=== PATIENT | female | born 1995 | race Caucasian/White ===

== ENCOUNTER 2016-12-17 21:30 | Emergency (ER) | payer BC, OTHER ==
[~2016-12-17 21:30] MED LIST: OXYCODONE/ACETA1 TA1 PO
--- NOTE | 2016-12-18 02:12 | ED NURSING NOTES ---
Clinical Report - Nurses [facility] [address] [place] [address] 12/17/2016 21:31 Patient: JOSH ALLEN TRIAGE 21:38 12/17/16. BP: 119/59. HR: 85. RR: 18. O2 saturation: 100% on room air. Temp: 98.1 F (oral). Pain level now: 03/08. --21:39 McQuoid, Ely, ER Tech1 Triage time 21:46 Dec 17 2016. Chief Complaint: HEADACHE and (PT reports SANTACRUZ x 4-5 days taking tylenol without relief). Alert. No acute distress. SEPSIS SCREEN: Sepsis Screen. Negative (no infection suspected/documented). RAE COMA SCORE: Rae Coma Scale: 15- eyes open spontaneously (4); best verbal response- oriented x 4 (5); best motor response- obeys commands (6). --21:49 Brandon Johnson RPaddy. Weight: 80.2 kg stated. Height/Length: 67 inches Per Patient. BMI: 27.7. --21:38 McQuoid, Ely, ER Tech1. Medications None. --21:38 McQuoid, Ely, ER Tech1. Allergies No Known Drug Allergy. --21:39 McQuoid, Ely, ER Tech1. Medication/allergy information source: the patient. --21:49 Brandon Johnson RPaddy. History Arrived by private vehicle. Historian: patient. Accompanied by family. This started 4 days. She has had nausea. 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 PAST MEDICAL HX: Headaches. Immunizations: up-to-date. Last normal menstrual period- 2016. SOCIAL HX: Smoker- current status unknown (cigarette). No alcohol use or drug use. No infectious disease exposure. No known contact with a sick individual. ABUSE ASSESSMENT: No report of abuse. SELF HARM ASSESSMENT: A self harm assessment was performed. The patient answered "no" to the question "Do you have thoughts of harming or killing yourself?". FALL RISK ASSESSMENT: Fall risk assessment completed. No fall risk identified. NUTRITIONAL RISK ASSESSMENT: The nutritional risk assessment revealed no deficiencies. FUNCTIONAL ASSESSMENT: Functional assessment: no impairments noted. LEARNING NEEDS ASSESSMENT: The learning needs assessment revealed no barriers. SKIN INTEGRITY ASSESSMENT: Skin integrity risk assessment completed. No skin integrity risk identified. --21:49 Brandon Johnson R.N. PROBLEMS: Bronchitis. URI. Pneumonia. Asthma. Fall. Contusion. Intrauterine . Tetanus Status. Immunizations. . --21:47 Brandon Johnson R.N. ADDITIONAL SURGERIES: . [place] teeth removal. --21:47 Brandon Johnson R.N. Interventions ID band on patient. To treatment room. --21:49 Brandno Johnson R.N. PHYSICAL ASSESSMENT Ambulatory to room. Patient gowned. GENERAL / NEURO / PSYCH: Alert. Oriented X 4. Appears in no acute distress. Speech within normal limits. HEENT: Pupils equal, round and reactive to light. RESPIRATORY: Respirations not labored. CVS: Capillary refill less than 2 seconds. GI / : Abdomen soft. SKIN: Skin is warm and dry. --21:49 Brandon Johnson R.N. NURSING PROGRESS NOTES Patient masked upon arrival to department. --21:39 McEly Marti, ER Tech1 Patient identifiers checked. Call light placed in reach. Side rails up x 1. Bed placed in lowest position. Brakes of bed on. Patient ready for evaluation- chart flagged. Patient waiting for evaluation. --21:49 Brandon Johnson R.N. 22:00. Checked patient name and birthdate urine collected; sample sent to lab. Specimen labeled in the presence of the patient. --22:02 McFigueroa Ely, ER Tech1 ( warm blanket provided for comfort, ekg completed, waiting cxr and further poc.). --22:08 Brandon Johnson R.N. 22:46 12/17/2016 Toradol (Ketorolac Tromethamine) IM 60 mg given. Given in the right deltoid. Allergies verified and confirmed 5 rights. --22:51 Brandon Johnson R.N. 22:46 12/17/2016 Diazepam (Diazepam) PO 10 mg given. Allergies verified, confirmed 5 rights and sedative warning given to the patient and patient's administrative specialist. --22:51 Brandon Johnson R.N. Patient identifiers checked. Call light placed in reach. Side rails up. Bed placed in lowest position. Brakes of bed on. --22:52 Brandon Johnson R.N. 23:14 12/17/16. BP: 110/62. HR: 74. RR: 15. O2 saturation: 97%. --23:15 Brandon Johnson R.N. Call light placed in reach. Side rails up. --23:15 Brandon Johnson R.N. ( pt appeared to be sleeping when entering room, pt reports no change in pain since meds given, pt texting on phone, waiting mds further poc). --23:16 Brandon Johnson R.N. 00:33 12/18/16. BP: 110/64. HR: 74. RR: 15. O2 saturation: 100%. Pain level now: 04/07. --00:34 Brandon Johnson R.N. 00:44 12/18/2016 Hydrocodone-APAP (Hydrocodone-Acetaminophen) PO 5/325 mg Tablets 1 tab given. Allergies verified, confirmed 5 rights and sedative warning given to the patient and patient's administrative specialist. --00:44 Brandon Johnson R.N. Care transferred and report received (Brandon, MARIA L). --00:50 Sybil Alcantar R.N. 01:38 12/18/2016 Started bag #1 1000 mL IV Fluids IV NS (Saline); at 1000 mL/hr over 1 hour(s) via site #1 via IV pump. Allergies verified and confirmed 5 rights. IV patency established. IV site checked: no pain, redness, or swelling. IV flushed thoroughly pre- and post-medication administration. --01:44 Sybil Alcantar R.N. 01:42 12/18/2016 Site #1 started via IV in the right hand with an 20g angiocath, with aseptic technique and good blood return; one attempt. Saline lock flushed with 10 mL saline. --01:42 Sybil Alcantar R.N. 01:43 12/18/2016 Decadron IVP 10 mg given over 4 minute(s) via site #1. Allergies verified and confirmed 5 rights. IV patency established. IV site checked: no pain, redness, or swelling. IV flushed thoroughly pre- and post-medication administration. IVP given by RN. --01:43 Sybil Alcantar R.N. 01:48 12/18/2016 Benadryl (DiphenhydrAMINE HCl) IVP 25 mg given over 1 minute(s) via site #1. Allergies verified, confirmed 5 rights and sedative warning given to the patient. IV patency established. IV site checked: no pain, redness, or swelling. IV flushed thoroughly pre- and post-medication administration. IVP given by RN. --01:48 Sybil Alcantar R.N. 01:42 12/18/16. BP: 105/63 (regular adult cuff) taken on the left arm. HR: 68. RR: 16. O2 saturation: 100% on room air. Pain level now: 01/05. --01:49 Sybil Alcantar R.N. 01:52 12/18/16. BP: 104/55 (regular adult cuff) taken on the left arm. HR: 70. RR: 16. O2 saturation: 100% on room air. --01:52 Sybil Alcantar R.N. 01:54 12/18/16. BP: 102/54 (regular adult cuff) taken on the left arm. --01:55 Sybil Alcantar R.N. 01:56 12/18/2016 Reglan (Metoclopramide HCl) IVP 10 mg given over 4 minute(s) via site #1. Allergies verified and confirmed 5 rights. IV patency established. IV site checked: no pain, redness, or swelling. IV flushed thoroughly pre- and post-medication administration. IVP given by RN. --01:56 Sybil Alcantar R.N. 02:10 12/18/16. BP: 113/61 (regular adult cuff) taken on the left arm, while sitting. HR: 66. RR: 16. O2 saturation: 100% on room air. Pain level now: 0/10. --02:11 Sybil Alcantar R.N. 02:11 12/18/16. ( Patient sleeping, easily aroused. Pain gone). --02:11 Sybil Alcantar R.N. <<STRICKEN ENTRY-- 02:32 12/18/2016 IV Fluids IV NS Discontinued: bag #1 discontinued. Total amount infused: 750 mL. IV patency established. IV site checked: no pain, redness, or swelling. IV flushed thoroughly. --02:42 Sybil Alcantar R.N. --END STRIKE>> Correction. --02:42 Sybil Alcantar R.N. 02:32 12/18/2016 IV Fluids IV NS Discontinued: bag #1 discontinued. Total amount infused: 890 mL. IV patency established. IV site checked: no pain, redness, or swelling. IV flushed thoroughly. --02:42 Sybil Alcantar R.N. DISPOSITION / DISCHARGE 02:35 12/18/2016 Site #1 removed upon discharge. Bandaid applied. --02:40 Sybil Alcantar R.N. late entry - 02:35 12/18/16. Departure time: 02:Dec 18 2016. Condition at departure: improved. No learning barriers present. Discharge instructions provided and reviewed with the patient. Reviewed medication(s) side effects, precautions, dosing and course information. Prescription(s) given to the patient. Patient and administrative specialist verbalized understanding. Written instructions provided in [place]une[place]. The patient was discharged by the physician. She was discharged home and accompanied by administrative specialist. She left the Emergency Department ambulatory and via private vehicle. Primer Press Operator driving. --02:41 Sybil Alcantar R.N. 02:39 12/18/16. BP: 108/66 (regular adult cuff) taken on the left arm, while sitting. HR: 70. RR: 16. O2 saturation: 100% on room air. Temp: 98.6 F (oral). Pain level now: 0/10. --02:41 Sybil Alcantar R.N. Locked/Released at 12/18/2016 3:24 by Sybil Alcantar R.N.
--- NOTE | 2016-12-18 02:12 | ED ORDER SUMMARY ---
..... Patient: JOSH ALLEN OrderSheet [facility] VisitID: [id number] [place] [address] 21y, F Registration Date/Time: 12/17/2016 ORDER SHEET Weight: 80.2 kg (stated) Allergies: No Known Drug Allergy, None GENERAL ORDERS: Urine Urgent (21:55 12/17/2016 Jeanie Peralta) (Ack 21:57 AMcQuoid ER Tech1) (22:01 AMcQuoid ER Tech1) MEDICATION ORDERS: Diazepam PO 10 mg (HIGH ALERT MEDICATION, NOW) (22:26 12/17/2016 Jeanie Peralta) (Ack 22:36 KPage-Kuchan R.N.) (22:51 KPage-Kuchan R.N.) Toradol IM 60 mg (NOW) (22:26 12/17/2016 Jeanie Peralta) (Ack 22:36 KPage-Kuchan R.N.) (22:51 KPage-Kuchan R.N.) Hydrocodone-APAP PO 5/325 mg (NOW, HIGH ALERT MEDICATION) (00:36 12/18/2016 Jeanie Peralta) (Ack 0:38 RCollier R.N.) (0:44 KPage-Kuchan R.N.) IV FLUIDS: Decadron IV 10 mg (NOW) (01:09 12/18/2016 Jeanie Peralta) (Ack 1:11 JSanders R.N.) (1:43 JSanders R.N.) Benadryl IV 25 mg (NOW) (01:09 12/18/2016 Jeanie Peralta) (Ack 1:11 JSanders R.N.) (1:48 JSanders R.N.) Reglan IV 10 mg (NOW) (01:12/18/2016 Jeanie Peralta) (Ack 1:11 JSanders R.N.) (1:56 JSanders R.N.) IV NS : initial bolus none -, then 1000 mL/hr for X1 (NOW) (01:12/18/2016 Jeanie Peralta) (Ack 1:11 JSanders R.N.) (1:44 Sean Kathleen.Mac) ORDER SHEET NOTES: [Electronically signed by Sybil Alcantar R.N. (03:24 12/18/2016)] [Electronically signed by Hilario Stevens Dr. (04:16 12/18/2016)] [Electronically locked/signed by Sybil Alcantar R.N. (03:24 12/18/2016)]
--- NOTE | 2016-12-18 02:12 | ED CLINICAL REPORT ---
Clinical Report - Physicians/Mid Levels [facility] [address] [place] [address] 12/17/2016 21:31 Patient: JOSH ALLEN Time Seen: 21:34; initial patient contact. Arrived- By private vehicle. Historian- patient. HISTORY OF PRESENT ILLNESS Chief Complaint: HEADACHE. This started about 4 days ago. Onset during light activity. It is described as "pain". Located in the frontal and occipital region and has had neck pain. Not located in the facial region. At its maximum, severity described as moderate. When seen in the E.D., severity described as moderate. Modifying factors: relieved by nothing. Not worsened by anything. The patient has had photophobia. No preceding symptoms, blurred vision, associated nausea, numbness or weakness. No vomiting. Similar symptoms previously: Many times. Recent medical care: Not recently seen/assessed. REVIEW OF SYSTEMS No fever, muscle aches, sinus pressure or skin rash. All systems otherwise negative, except as recorded above. PAST HISTORY Bronchitis. URI. Pneumonia. Asthma. Fall. Contusion. SURGERIES: . [place] teeth removal. SOCIAL HISTORY Current every day smoker. No alcohol use or drug use. ADDITIONAL NOTES The nursing notes have been reviewed. PHYSICAL EXAM Vital Signs: 12/17/2016 21:38 BP: 119/59. HR: 85. RR: 18. O2 saturation: 100%. Temp: 98.1 F. Pain level now: 9. Have been reviewed. Hypotensive. Heart rate normal. Respiratory rate normal. Temperature normal. Oxygen saturation normal. Appearance: Alert. No acute distress. Eyes: Pupils equal, round and reactive to light. Eyes normal inspection. ENT: Pharynx normal. Neck: Mild muscle spasm of the right and left posterior neck. Neck supple. No meningeal signs, decreased ROM in the neck or soft tissue tenderness. No pain with movement of head/neck. CVS: Normal heart rate and rhythm. Heart sounds normal. Respiratory: No respiratory distress. Breath sounds normal. Skin: Skin warm and dry. Normal skin color. No rash. Neuro: Oriented X 3. Alert. Mood/affect normal. Speech normal. LABS, X-RAYS, AND EKG Laboratory Tests: Urine: (SIDDHARTH: 12/17/2016 22:00) ( MsgRcvd 12/17/2016 22:10) Final results Test Result Flag Units (Reference) URINE NEGATIVE . PROGRESS AND PROCEDURES Disposition: Discharged home in good and improved condition. Condition: good. CLINICAL IMPRESSION Episodic tension-type headache resistant to treatment and poorly controlled. INSTRUCTIONS Rest at home tomorrow. Prescription Medications: Baclofen 10 mg: take 1 orally every 8 hours. Dispense thirty (30). No refills. Diclofenac 50 mg tablets: take 1 tablet orally every 8 hours as needed for pain or stiffness. Dispense thirty (30). No refill. Follow-up: Screening today revealed the patient's blood pressure to be in the normal range. Follow-up with: Adan Drew MD, Neurology, , [phone], , [place], [id number] Follow up in about one week. Call for an appointment. (Electronically signed by Hilario Stevens Dr. 12/18/2016 4:16)
--- NOTE | 2016-12-18 02:12 | ED NURSING NOTES ---
Clinical Report - Nurses [facility] [address] [place] [address] 12/17/2016 21:31 Patient: JOSH ALLEN TRIAGE 21:38 12/17/16. BP: 119/59. HR: 85. RR: 18. O2 saturation: 100% on room air. Temp: 98.1 F (oral). Pain level now: 03/08. --21:39 McQuoid, Ely, ER Tech1 Triage time 21:46 Dec 17 2016. Chief Complaint: HEADACHE and (PT reports SANTACRUZ x 4-5 days taking tylenol without relief). Alert. No acute distress. SEPSIS SCREEN: Sepsis Screen. Negative (no infection suspected/documented). RAE COMA SCORE: Rae Coma Scale: 15- eyes open spontaneously (4); best verbal response- oriented x 4 (5); best motor response- obeys commands (6). --21:49 Brandon Johnson RPaddy. Weight: 80.2 kg stated. Height/Length: 67 inches Per Patient. BMI: 27.7. --21:38 McQuoid, Ely, ER Tech1. Medications None. --21:38 McQuoid, Ely, ER Tech1. Allergies No Known Drug Allergy. --21:39 McQuoid, Ely, ER Tech1. Medication/allergy information source: the patient. --21:49 Brandon Johnson RPaddy. History Arrived by private vehicle. Historian: patient. Accompanied by family. This started 4 days. She has had nausea. 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 PAST MEDICAL HX: Headaches. Immunizations: up-to-date. Last normal menstrual period- 2016. SOCIAL HX: Smoker- current status unknown (cigarette). No alcohol use or drug use. No infectious disease exposure. No known contact with a sick individual. ABUSE ASSESSMENT: No report of abuse. SELF HARM ASSESSMENT: A self harm assessment was performed. The patient answered "no" to the question "Do you have thoughts of harming or killing yourself?". FALL RISK ASSESSMENT: Fall risk assessment completed. No fall risk identified. NUTRITIONAL RISK ASSESSMENT: The nutritional risk assessment revealed no deficiencies. FUNCTIONAL ASSESSMENT: Functional assessment: no impairments noted. LEARNING NEEDS ASSESSMENT: The learning needs assessment revealed no barriers. SKIN INTEGRITY ASSESSMENT: Skin integrity risk assessment completed. No skin integrity risk identified. --21:49 Brandon Johnson R.N. PROBLEMS: Bronchitis. URI. Pneumonia. Asthma. Fall. Contusion. Intrauterine . Tetanus Status. Immunizations. . --21:47 Brandon Johnson R.N. ADDITIONAL SURGERIES: . [place] teeth removal. --21:47 Brandon Johnson R.N. Interventions ID band on patient. To treatment room. --21:49 Brandon Johnson R.N. PHYSICAL ASSESSMENT Ambulatory to room. Patient gowned. GENERAL / NEURO / PSYCH: Alert. Oriented X 4. Appears in no acute distress. Speech within normal limits. HEENT: Pupils equal, round and reactive to light. RESPIRATORY: Respirations not labored. CVS: Capillary refill less than 2 seconds. GI / : Abdomen soft. SKIN: Skin is warm and dry. --21:49 Brandon Johnson R.N. NURSING PROGRESS NOTES Patient masked upon arrival to department. --21:39 McEly Marti, ER Tech1 Patient identifiers checked. Call light placed in reach. Side rails up x 1. Bed placed in lowest position. Brakes of bed on. Patient ready for evaluation- chart flagged. Patient waiting for evaluation. --21:49 Brandon Johnson R.N. 22:00. Checked patient name and birthdate urine collected; sample sent to lab. Specimen labeled in the presence of the patient. --22:02 McFigueroa Ely, ER Tech1 ( warm blanket provided for comfort, ekg completed, waiting cxr and further poc.). --22:08 Brandon Johnson R.N. 22:46 12/17/2016 Toradol (Ketorolac Tromethamine) IM 60 mg given. Given in the right deltoid. Allergies verified and confirmed 5 rights. --22:51 Brandon Johnson R.N. 22:46 12/17/2016 Diazepam (Diazepam) PO 10 mg given. Allergies verified, confirmed 5 rights and sedative warning given to the patient and patient's interior design project manager. --22:51 Brandon Johnson R.N. Patient identifiers checked. Call light placed in reach. Side rails up. Bed placed in lowest position. Brakes of bed on. --22:52 Brandon Johnson R.N. 23:14 12/17/16. BP: 110/62. HR: 74. RR: 15. O2 saturation: 97%. --23:15 Brandon Johnson R.N. Call light placed in reach. Side rails up. --23:15 Brandon Johnson R.N. ( pt appeared to be sleeping when entering room, pt reports no change in pain since meds given, pt texting on phone, waiting mds further poc). --23:16 Brandon Johnson R.N. 00:33 12/18/16. BP: 110/64. HR: 74. RR: 15. O2 saturation: 100%. Pain level now: 04/07. --00:34 Brandon Johnson R.N. 00:44 12/18/2016 Hydrocodone-APAP (Hydrocodone-Acetaminophen) PO 5/325 mg Tablets 1 tab given. Allergies verified, confirmed 5 rights and sedative warning given to the patient and patient's interior design project manager. --00:44 Brandon Johnson R.N. Care transferred and report received (Brandon, MARIA L). --00:50 Sybil Alcantar R.N. 01:38 12/18/2016 Started bag #1 1000 mL IV Fluids IV NS (Saline); at 1000 mL/hr over 1 hour(s) via site #1 via IV pump. Allergies verified and confirmed 5 rights. IV patency established. IV site checked: no pain, redness, or swelling. IV flushed thoroughly pre- and post-medication administration. --01:44 Sybil Alcantar R.N. 01:42 12/18/2016 Site #1 started via IV in the right hand with an 20g angiocath, with aseptic technique and good blood return; one attempt. Saline lock flushed with 10 mL saline. --01:42 Sybil Alcantar R.N. 01:43 12/18/2016 Decadron IVP 10 mg given over 4 minute(s) via site #1. Allergies verified and confirmed 5 rights. IV patency established. IV site checked: no pain, redness, or swelling. IV flushed thoroughly pre- and post-medication administration. IVP given by RN. --01:43 Sybil Alcantar R.N. 01:48 12/18/2016 Benadryl (DiphenhydrAMINE HCl) IVP 25 mg given over 1 minute(s) via site #1. Allergies verified, confirmed 5 rights and sedative warning given to the patient. IV patency established. IV site checked: no pain, redness, or swelling. IV flushed thoroughly pre- and post-medication administration. IVP given by RN. --01:48 Sybil Alcantar R.N. 01:42 12/18/16. BP: 105/63 (regular adult cuff) taken on the left arm. HR: 68. RR: 16. O2 saturation: 100% on room air. Pain level now: 01/05. --01:49 Sybil Alcantar R.N. 01:52 12/18/16. BP: 104/55 (regular adult cuff) taken on the left arm. HR: 70. RR: 16. O2 saturation: 100% on room air. --01:52 Sybil Alcantar R.N. 01:54 12/18/16. BP: 102/54 (regular adult cuff) taken on the left arm. --01:55 Sybil Alcantar R.N. 01:56 12/18/2016 Reglan (Metoclopramide HCl) IVP 10 mg given over 4 minute(s) via site #1. Allergies verified and confirmed 5 rights. IV patency established. IV site checked: no pain, redness, or swelling. IV flushed thoroughly pre- and post-medication administration. IVP given by RN. --01:56 Sybil Alcantar R.N. 02:10 12/18/16. BP: 113/61 (regular adult cuff) taken on the left arm, while sitting. HR: 66. RR: 16. O2 saturation: 100% on room air. Pain level now: 0/10. --02:11 Sybil Alcantar R.N. 02:11 12/18/16. ( Patient sleeping, easily aroused. Pain gone). --02:11 Sybil Alcantar R.N. <<STRICKEN ENTRY-- 02:32 12/18/2016 IV Fluids IV NS Discontinued: bag #1 discontinued. Total amount infused: 750 mL. IV patency established. IV site checked: no pain, redness, or swelling. IV flushed thoroughly. --02:42 Sybil Alcantar R.N. --END STRIKE>> Correction. --02:42 Sybil Alcantar R.N. 02:32 12/18/2016 IV Fluids IV NS Discontinued: bag #1 discontinued. Total amount infused: 890 mL. IV patency established. IV site checked: no pain, redness, or swelling. IV flushed thoroughly. --02:42 Sybil Alcantar R.N. DISPOSITION / DISCHARGE 02:35 12/18/2016 Site #1 removed upon discharge. Bandaid applied. --02:40 Sybil Alcantar R.N. late entry - 02:35 12/18/16. Departure time: 02:Dec 18 2016. Condition at departure: improved. No learning barriers present. Discharge instructions provided and reviewed with the patient. Reviewed medication(s) side effects, precautions, dosing and course information. Prescription(s) given to the patient. Patient and interior design project manager verbalized understanding. Written instructions provided in [place]. The patient was discharged by the physician. She was discharged home and accompanied by interior design project manager. She left the Emergency Department ambulatory and via private vehicle. Pan Puller driving. --02:41 Sybil Alcantar R.N. 02:39 12/18/16. BP: 108/66 (regular adult cuff) taken on the left arm, while sitting. HR: 70. RR: 16. O2 saturation: 100% on room air. Temp: 98.6 F (oral). Pain level now: 0/10. --02:41 Sybil Alcantar R.N. Locked/Released at 12/18/2016 3:24 by Sybil Alcantar R.N.
--- NOTE | 2016-12-18 02:12 | ED CLINICAL REPORT ---
Clinical Report - Physicians/Mid Levels [facility] [address] [place] [address] 12/17/2016 21:31 Patient: JOSH ALLEN Time Seen: 21:34; initial patient contact. Arrived- By private vehicle. Historian- patient. HISTORY OF PRESENT ILLNESS Chief Complaint: HEADACHE. This started about 4 days ago. Onset during light activity. It is described as "pain". Located in the frontal and occipital region and has had neck pain. Not located in the facial region. At its maximum, severity described as moderate. When seen in the E.D., severity described as moderate. Modifying factors: relieved by nothing. Not worsened by anything. The patient has had photophobia. No preceding symptoms, blurred vision, associated nausea, numbness or weakness. No vomiting. Similar symptoms previously: Many times. Recent medical care: Not recently seen/assessed. REVIEW OF SYSTEMS No fever, muscle aches, sinus pressure or skin rash. All systems otherwise negative, except as recorded above. PAST HISTORY Bronchitis. URI. Pneumonia. Asthma. Fall. Contusion. SURGERIES: . [place] teeth removal. SOCIAL HISTORY Current every day smoker. No alcohol use or drug use. ADDITIONAL NOTES The nursing notes have been reviewed. PHYSICAL EXAM Vital Signs: 12/17/2016 21:38 BP: 119/59. HR: 85. RR: 18. O2 saturation: 100%. Temp: 98.1 F. Pain level now: 9. Have been reviewed. Hypotensive. Heart rate normal. Respiratory rate normal. Temperature normal. Oxygen saturation normal. Appearance: Alert. No acute distress. Eyes: Pupils equal, round and reactive to light. Eyes normal inspection. ENT: Pharynx normal. Neck: Mild muscle spasm of the right and left posterior neck. Neck supple. No meningeal signs, decreased ROM in the neck or soft tissue tenderness. No pain with movement of head/neck. CVS: Normal heart rate and rhythm. Heart sounds normal. Respiratory: No respiratory distress. Breath sounds normal. Skin: Skin warm and dry. Normal skin color. No rash. Neuro: Oriented X 3. Alert. Mood/affect normal. Speech normal. LABS, X-RAYS, AND EKG Laboratory Tests: Urine: (SIDDHARTH: 12/17/2016 22:00) ( MsgRcvd 12/17/2016 22:10) Final results Test Result Flag Units (Reference) URINE NEGATIVE . PROGRESS AND PROCEDURES Disposition: Discharged home in good and improved condition. Condition: good. CLINICAL IMPRESSION Episodic tension-type headache resistant to treatment and poorly controlled. INSTRUCTIONS Rest at home tomorrow. Prescription Medications: Baclofen 10 mg: take 1 orally every 8 hours. Dispense thirty (30). No refills. Diclofenac 50 mg tablets: take 1 tablet orally every 8 hours as needed for pain or stiffness. Dispense thirty (30). No refill. Follow-up: Screening today revealed the patient's blood pressure to be in the normal range. Follow-up with: Adan Drew MD, Neurology, , [id number], , [place], [phone] Follow up in about one week. Call for an appointment. (Electronically signed by Hilario Stevens Dr. 12/18/2016 4:16)
--- NOTE | 2016-12-18 02:12 | ED ORDER SUMMARY ---
..... Patient: JOSH ALLEN OrderSheet [facility] VisitID: [id number] [place] [address] 21y, F Registration Date/Time: 12/17/2016 ORDER SHEET Weight: 80.2 kg (stated) Allergies: No Known Drug Allergy, None GENERAL ORDERS: Urine Urgent (21:55 12/17/2016 Jeanie Peralta) (Ack 21:57 AMcQuoid ER Tech1) (22:01 AMcQuoid ER Tech1) MEDICATION ORDERS: Diazepam PO 10 mg (HIGH ALERT MEDICATION, NOW) (22:26 12/17/2016 Jeanie Peralta) (Ack 22:36 KPage-Kuchan R.N.) (22:51 KPage-Kuchan R.N.) Toradol IM 60 mg (NOW) (22:26 12/17/2016 Jeanie Peralta) (Ack 22:36 KPage-Kuchan R.N.) (22:51 KPage-Kuchan R.N.) Hydrocodone-APAP PO 5/325 mg (NOW, HIGH ALERT MEDICATION) (00:36 12/18/2016 Jeanie Peralta) (Ack 0:38 RCollier R.N.) (0:44 KPage-Kuchan R.N.) IV FLUIDS: Decadron IV 10 mg (NOW) (01:09 12/18/2016 Jeanie Peralta) (Ack 1:11 JSanders R.N.) (1:43 JSanders R.N.) Benadryl IV 25 mg (NOW) (01:09 12/18/2016 Jeanie Peralta) (Ack 1:11 JSanders R.N.) (1:48 JSanders R.N.) Reglan IV 10 mg (NOW) (01:12/18/2016 Jeanie Peralta) (Ack 1:11 JSanders R.N.) (1:56 JSanders R.N.) IV NS : initial bolus none -, then 1000 mL/hr for X1 (NOW) (01:12/18/2016 Jeanie Peralta) (Ack 1:11 JSanders R.N.) (1:44 Sean Kathleen.Mac) ORDER SHEET NOTES: [Electronically signed by Sybil Alcantar R.N. (03:24 12/18/2016)] [Electronically signed by Hilario Stevens Dr. (04:16 12/18/2016)] [Electronically locked/signed by Sybil Alcantar R.N. (03:24 12/18/2016)]
--- NOTE | 2016-12-18 04:16 | ED MAR SUMMARY ---
..... Medication Administration Record [facility] [address] [place] [address] Patient: JOSH ALLEN Visit ID: [id number] 21y, F Weight: 80.2 kg Height/Length: 67 in BMI: 27.7 ALLERGIES: No Known Drug Allergy, None Given 22:46 12/17/2016 Brandon Johnson R.N. Medication Administered: DIAZEPAM [PO] (DIAZEPAM), Dose: 10 mg PO. Medication Ordered: Diazepam PO 10 mg (HIGH ALERT MEDICATION, NOW). Given 22:46 12/17/2016 Brandon Johnson R.N. Medication Administered: TORADOL [IM] (KETOROLAC TROMETHAMINE), Dose: 60 mg IM. Medication Ordered: Toradol IM 60 mg (NOW). Given 00:44 12/18/2016 Brandon Johnson R.N. Medication Administered: HYDROCODONE-APAP [PO] (HYDROCODONE-ACETAMINOPHEN), Dose: 1 tab 5/325 mg Tablets PO. Medication Ordered: Hydrocodone-APAP PO 5/325 mg (NOW, HIGH ALERT MEDICATION). Start 01:38 12/18/2016 Sybil Alcantar R.N., Stop 02:32 12/18/2016 Sybil Alcantar R.N. Medication Administered: IV NS (SALINE), Dose: IV Fluids over 1 hour(s), Rate: 1000 mL/hr, Dispensed: 1000 mL bag, Site: #1. Medication Ordered: IV NS : initial bolus none -, then 1000 mL/hr for X1 (NOW). Given 01:43 12/18/2016 Sybil Alcantar R.N. Medication Administered: DECADRON [IVP], Dose: 10 mg IVP over 4 minute(s), Site: #1 right hand. Medication Ordered: Decadron IV 10 mg (NOW). Given 01:48 12/18/2016 Sybil Alcantar R.N. Medication Administered: BENADRYL [IVP] (DIPHENHYDRAMINE HCL), Dose: 25 mg IVP over 1 minute(s), Site: #1 right hand. Medication Ordered: Benadryl IV 25 mg (NOW). Given 01:56 12/18/2016 Sybil Alcantar R.N. Medication Administered: REGLAN [IVP] (METOCLOPRAMIDE HCL), Dose: 10 mg IVP over 4 minute(s), Site: #1 right hand. Medication Ordered: Reglan IV 10 mg (NOW).
--- NOTE | 2016-12-18 04:16 | ED DISCHARGE INSTRUCTIONS ---
Patient: JOSH ALLEN General Instructions [facility] VisitID: [id number] [place] [address] 21y, F Registration Date/Time: 12/17/2016 Episodic tension-type headache resistant to treatment and poorly controlled. INSTRUCTIONS Rest at home tomorrow. Prescription Medications: Baclofen 10 mg: take 1 orally every 8 hours. Dispense thirty (30). No refills. Diclofenac 50 mg tablets: take 1 tablet orally every 8 hours as needed for pain or stiffness. Dispense thirty (30). No refill. Follow-up: Screening today revealed the patient's blood pressure to be in the normal range. Follow-up with: Adan Drew MD, Neurology, , [id number], , [place], [phone] Follow up in about one week. Call for an appointment. ADDITIONAL INFORMATION Tension Headache Muscle Tension Headache (also called "stress headache") is a very common cause of head pain. Under stress, some people tense the muscles of their shoulder, neck and scalp without knowing it. If this lasts long enough, a headache can occur. These headaches can be very painful and last for hours or even days. Home Care: If you were given pain medicine for this headache, do not drive yourself home. Arrange for a ride, instead. When you get home, try to sleep. You should feel much better when you wake up. Heat to the back of your neck may relieve neck spasm. Drink only clear liquids or eat a very light diet to avoid nausea/vomiting until symptoms improve. Preventing Future Headaches Identify the sources of stress in your life. These may not be obvious! Learn new ways to handle your stress, such as regular exercise, biofeedback, self-hypnosis and meditation. For more information about this, consult your doctor or go to a local bookstore and review the many books and tapes on this subject. At the first sign of a tension headache, take time out if possible. Remove yourself from the stressful situation, find a quiet comfortable place to sit or lie down and let yourself relax. Heat and deep massage of the tight areas in the neck and shoulders may help reduce muscle spasm. Medicine, such as ibuprofen (Advil or Motrin) or a prescribed muscle relaxant may be helpful at this point. Follow Up with your doctor if the headache is not better within the next 24 hours. If you have frequent headaches you should discuss a treatment plan with your primary care doctor. Ask if you can have medicine to take at home the next time you get a bad headache. This may avoid the need for a visit to the emergency department in the future. Poorly controlled chronic headaches may require a referral to a neurologist (headache specialist). Get Prompt Medical Attention if any of the following occur: Worsening of your head pain or no improvement within 24 hours Repeated vomiting (unable to keep liquids down) Fever of 100.4F (38C) or higher, or as directed by your healthcare provider Stiff neck Extreme drowsiness, confusion or fainting Dizziness, vertigo (dizziness with spinning sensation) Weakness of an arm or leg or one side of the face Difficulty with speech or vision You have been given the following additional information: Headache, Tension Rest at home tomorrow. (Electronically signed by Hilario Stevens Dr. 12/18/2016 4:16)
--- NOTE | 2016-12-18 04:16 | ED MAR SUMMARY ---
..... Medication Administration Record [facility] [address] [place] [address] Patient: JOSH ALLEN Visit ID: [id number] 21y, F Weight: 80.2 kg Height/Length: 67 in BMI: 27.7 ALLERGIES: No Known Drug Allergy, None Given 22:46 12/17/2016 Brandon Johnson R.N. Medication Administered: DIAZEPAM [PO] (DIAZEPAM), Dose: 10 mg PO. Medication Ordered: Diazepam PO 10 mg (HIGH ALERT MEDICATION, NOW). Given 22:46 12/17/2016 Brandon Johnson R.N. Medication Administered: TORADOL [IM] (KETOROLAC TROMETHAMINE), Dose: 60 mg IM. Medication Ordered: Toradol IM 60 mg (NOW). Given 00:44 12/18/2016 Brandon Johnson R.N. Medication Administered: HYDROCODONE-APAP [PO] (HYDROCODONE-ACETAMINOPHEN), Dose: 1 tab 5/325 mg Tablets PO. Medication Ordered: Hydrocodone-APAP PO 5/325 mg (NOW, HIGH ALERT MEDICATION). Start 01:38 12/18/2016 Sybil Alcantar R.N., Stop 02:32 12/18/2016 Sybil Alcantar R.N. Medication Administered: IV NS (SALINE), Dose: IV Fluids over 1 hour(s), Rate: 1000 mL/hr, Dispensed: 1000 mL bag, Site: #1. Medication Ordered: IV NS : initial bolus none -, then 1000 mL/hr for X1 (NOW). Given 01:43 12/18/2016 Sybil Alcantar R.N. Medication Administered: DECADRON [IVP], Dose: 10 mg IVP over 4 minute(s), Site: #1 right hand. Medication Ordered: Decadron IV 10 mg (NOW). Given 01:48 12/18/2016 Sybil Alcantar R.N. Medication Administered: BENADRYL [IVP] (DIPHENHYDRAMINE HCL), Dose: 25 mg IVP over 1 minute(s), Site: #1 right hand. Medication Ordered: Benadryl IV 25 mg (NOW). Given 01:56 12/18/2016 Sybil Alcantar R.N. Medication Administered: REGLAN [IVP] (METOCLOPRAMIDE HCL), Dose: 10 mg IVP over 4 minute(s), Site: #1 right hand. Medication Ordered: Reglan IV 10 mg (NOW).
--- NOTE | 2016-12-18 04:16 | ED MED RECONCILIATION SUMMARY ---
Patient: JOSH ALLEN Medication Reconciliation Report [facility] VisitID: [id number] [place] [address] 21y, F Registration Date/Time: 12/17/2016 Weight: 80.2 kg Height/Length: 67 in. BMI: 27.7 ALLERGIES: No Known Drug Allergy, None The patient's Home Medications are listed below: NONE. The source(s) of the original Home Medication information: patient The following Medications were given to the patient in the Emergency Department: Toradol [IM] IM 60 mg, administered: 12/17/2016 10:46:00 PM Diazepam [PO] PO 10 mg, administered: 12/17/2016 10:46:00 PM Hydrocodone-APAP [PO] PO 1 tab, administered: 12/18/2016 12:44:00 AM Decadron [IVP] IVP 10 mg, administered: 12/18/2016 1:43:00 AM IV NS IV Fluids bolus 0, then 1000 mL/hr, administered: 12/18/2016 1:38:00 AM Benadryl [IVP] IVP 25 mg, administered: 12/18/2016 1:48:00 AM Reglan [IVP] IVP 10 mg, administered: 12/18/2016 1:56:00 AM The following Medications were prescribed to the patient: Baclofen 10 mg: take 1 orally every 8 hours. Dispense thirty (30). No refills. -- Hilario Stevens Dr. Diclofenac 50 mg tablets: take 1 tablet orally every 8 hours as needed for pain or stiffness. Dispense thirty (30). No refill. -- Hilario Stevens Dr.
--- NOTE | 2016-12-18 04:16 | ED DISCHARGE INSTRUCTIONS ---
Patient: JOSH ALLEN General Instructions [facility] VisitID: [id number] [place] [address] 21y, F Registration Date/Time: 12/17/2016 Episodic tension-type headache resistant to treatment and poorly controlled. INSTRUCTIONS Rest at home tomorrow. Prescription Medications: Baclofen 10 mg: take 1 orally every 8 hours. Dispense thirty (30). No refills. Diclofenac 50 mg tablets: take 1 tablet orally every 8 hours as needed for pain or stiffness. Dispense thirty (30). No refill. Follow-up: Screening today revealed the patient's blood pressure to be in the normal range. Follow-up with: Adan Drew MD, Neurology, , [address], , [place], [phone] Follow up in about one week. Call for an appointment. ADDITIONAL INFORMATION Tension Headache Muscle Tension Headache (also called "stress headache") is a very common cause of head pain. Under stress, some people tense the muscles of their shoulder, neck and scalp without knowing it. If this lasts long enough, a headache can occur. These headaches can be very painful and last for hours or even days. Home Care: If you were given pain medicine for this headache, do not drive yourself home. Arrange for a ride, instead. When you get home, try to sleep. You should feel much better when you wake up. Heat to the back of your neck may relieve neck spasm. Drink only clear liquids or eat a very light diet to avoid nausea/vomiting until symptoms improve. Preventing Future Headaches Identify the sources of stress in your life. These may not be obvious! Learn new ways to handle your stress, such as regular exercise, biofeedback, self-hypnosis and meditation. For more information about this, consult your doctor or go to a local bookstore and review the many books and tapes on this subject. At the first sign of a tension headache, take time out if possible. Remove yourself from the stressful situation, find a quiet comfortable place to sit or lie down and let yourself relax. Heat and deep massage of the tight areas in the neck and shoulders may help reduce muscle spasm. Medicine, such as ibuprofen (Advil or Motrin) or a prescribed muscle relaxant may be helpful at this point. Follow Up with your doctor if the headache is not better within the next 24 hours. If you have frequent headaches you should discuss a treatment plan with your primary care doctor. Ask if you can have medicine to take at home the next time you get a bad headache. This may avoid the need for a visit to the emergency department in the future. Poorly controlled chronic headaches may require a referral to a neurologist (headache specialist). Get Prompt Medical Attention if any of the following occur: Worsening of your head pain or no improvement within 24 hours Repeated vomiting (unable to keep liquids down) Fever of 100.4F (38C) or higher, or as directed by your healthcare provider Stiff neck Extreme drowsiness, confusion or fainting Dizziness, vertigo (dizziness with spinning sensation) Weakness of an arm or leg or one side of the face Difficulty with speech or vision You have been given the following additional information: Headache, Tension Rest at home tomorrow. (Electronically signed by Hilario Stevens Dr. 12/18/2016 4:16)
--- NOTE | 2016-12-18 04:16 | ED MED RECONCILIATION SUMMARY ---
Patient: JOSH ALLEN Medication Reconciliation Report [facility] VisitID: [id number] [place] [address] 21y, F Registration Date/Time: 12/17/2016 Weight: 80.2 kg Height/Length: 67 in. BMI: 27.7 ALLERGIES: No Known Drug Allergy, None The patient's Home Medications are listed below: NONE. The source(s) of the original Home Medication information: patient The following Medications were given to the patient in the Emergency Department: Toradol [IM] IM 60 mg, administered: 12/17/2016 10:46:00 PM Diazepam [PO] PO 10 mg, administered: 12/17/2016 10:46:00 PM Hydrocodone-APAP [PO] PO 1 tab, administered: 12/18/2016 12:44:00 AM Decadron [IVP] IVP 10 mg, administered: 12/18/2016 1:43:00 AM IV NS IV Fluids bolus 0, then 1000 mL/hr, administered: 12/18/2016 1:38:00 AM Benadryl [IVP] IVP 25 mg, administered: 12/18/2016 1:48:00 AM Reglan [IVP] IVP 10 mg, administered: 12/18/2016 1:56:00 AM The following Medications were prescribed to the patient: Baclofen 10 mg: take 1 orally every 8 hours. Dispense thirty (30). No refills. -- Hilario Stevens Dr. Diclofenac 50 mg tablets: take 1 tablet orally every 8 hours as needed for pain or stiffness. Dispense thirty (30). No refill. -- Hilario Stevens Dr.
== END 2016-12-18 02:40 | disposition home or self-care (01) ==
LOC: ED SRH 21:30
DX: G44.211 Episodic tension-type headache, intractable (principal); F17.210 Nicotine dependence, cigarettes, uncomplicated
CPT/HCPCS: 93070